=== PATIENT | male | born 1975 | race American Indian/Alaskan Native ===

== ENCOUNTER 2019-05-02 07:45 | Emergency (ER) | payer OTHER ==
--- NOTE | 2019-05-02 09:04 | Emergency Department Report ---
ED Rash HPI - HPI Chief Complaint: Medical Clearance Stated Complaint: SICKNESS Time Seen by Provider: 05/02/19 08:36 Duration: 5 Days Location: Lower Extremities (left lower extremity) Suspected Cause: Unknown Rash Symptoms: Yes Fever (sweats), Yes Malaise, No Itching, No Facial Swelling, No Tongue/Oral Swelling, No Breathing Difficulties, No Choking Sensation, No Whe ezing/Dyspnea, No Peeling, No Blistering, No Lightheaded, No Myalgias Severity: mild Other History: Mr. Medina is a 44 yo male with hx of tobacco abuse who presents with profuse sweating for several days. Had a negative flu swab. No fever. No cough. 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 No distress. Alert and acting appropriately. HEENT: No Periorbital Edema, No Conjuctival Injection, No Chemosis, No Perioral Edema, No Tongue Edema, No Uvular Edema, No Compromised Airway, No Drooling Lungs: Yes Good Air Exchange (Normal Breath Sounds), No Wheezes, No Ronchi, No Stridor, No Cough, No Labored Respirations, No Retractions, No Use of Accessory Muscles, No Other Abnormal Lung Sounds Heart: Yes Regular, No Murmur Skin: Yes Tenderness, Yes Erythema, Yes Edema, Yes Other (6 x 4 cm region of cellulitis left lower lateral leg just above the ankle with mild edema), No Urticarial Rash, No Maculopapular Rash, No Bulla(e), No Weeping, No Encrustations Other: Positive: Abdomen Normal, Neurologic Normal, Musculoskeletal Normal ED Medical Decision Making - Radiology Data Radiology results: report reviewed, image reviewed Chest x-ray PA and lateral: No acute process according radiology report. No acute process according to radiology report - Medical Decision Making Left lower leg cellulitis possible consideration for profuse sweating. Prescribed Keflex and Bactrim Critical care attestation.: If time is entered above; I have spent that time in minutes in the direct care of this critically ill patient, excluding procedure time. ED Disposition Clinical Impression: Left leg cellulitis Disposition: DC- TO HOME OR SELFCARE Is pt being admited?: No Does the pt Need Aspirin: No Condition: Stable Instructions: Cellulitis (ED) Prescriptions: Sulfamethoxazole/Trimethoprim [Bactrim DS TAB] 1 each PO BID 7 Days #14 tablet cephALEXin [Keflex] 500 mg PO Q6HR 7 Days #28 capsule
[2019-05-02] MEDS ORDERED: BACTRIM DS PO ONE (09:06)
[2019-05-02] MEDS ORDERED: KEFLEX PO ONE (09:06)
--- NOTE | 2019-05-02 09:18 | XRay Report ---
CHEST 2 VIEWS, 05/02/2019 at 9:03 AM INDICATION: Chest pain. Sweating. COMPARISON: None FINDINGS: Support devices: None Heart: Heart size and pulmonary vascularity appear within normal limits. Lungs/pleura: The lungs are clear of focal airspace disease or significant pleural effusion. Additional findings: IMPRESSION: 1. No evidence of acute cardiopulmonary process. Signer Name: Tran Oscar MD Signed: 05/02/2019 9:14 AM Workstation Name: [id number]
== END 2019-05-02 09:50 | disposition home or self-care (01) ==
LOC: ED 07:45
DX: L03.116 Cellulitis of left lower limb (principal); F17.200 Nicotine dependence, unspecified, uncomplicated; Z79.899 Other long term (current) drug therapy
CPT/HCPCS: 71046; 82962; 99283